=== PATIENT | female | born 1970 | race Caucasian/White ===

== ENCOUNTER → 2020-06-14 | Day surgery (SDC) | payer OTHER ==
[~2020-06-14] MED LIST: Acetaminophen 325 MG Tab PO ONE; Bupivacaine 0.25% 10 ML SDV ONE; EPINEPHrine 1 MG/ML 30 ML MDV IRR SCH; Lactated Ringers 1,000 ML IV SCH; Lactated Ringers 1,000 ML ONE; Lidocaine 1% 4 ML ONE; Lidocaine 1%/Sod Bicarbonate in NS 8.4% 1 ML Syringe IDERM PRN; Midazolam 1 MG/ML 2 ML SDV ONE; Pregabalin 25 MG Cap PO STA; Propofol 200 MG/20 ML SDV ONE; Sodium Chloride 0.9% 10 ML Syringe FLUSH PRN; ceFAZolin 1 GM Vial ONE; fentaNYL 100 MCG/2 ML SDV ONE; oxyCODONE 5 MG Tab PO PRN; oxyCODONE ER 10 MG TAB.ER PO STA
--- NOTE | 2020-06-14 07:30 | PCM.PREANE ---
Preanesthetic Assessment - Anesthesia/Transfusion/Family Hx Anesthesia History: Prior Anesthesia Without Reaction - Review of Systems General: No Symptoms Pulmonary: No Symptoms Cardiovascular: No Symptoms Gastrointestinal: No Symptoms Neurological: No Symptoms Other: Reports: None - Physical Assessment NPO Status Date: 06/13/20 NPO Status Time: 22:00 Vital Signs: 123/84 87 17 RR 98% 97.6F ASA Class: 1 Mental Status: Alert & Oriented x3 Airway Class: Mallampati = 1 Dentition: Reports: Normal Dentition, [place](s) Thyro-Mental Finger Breadths: 3 Mouth Opening Finger Breadths: 3 ROM/Head Extension: Full Lungs: Clear to Auscultation, Normal Respiratory Effort Cardiovascular: Regular Rate, Regular Rhythm - Lab Values: Laboratory Last Values MRSA (PCR) Negative 06/12/20 11:53 - Allergies Allergies/Adverse Reactions: Allergies Allergy/AdvReac Type Severity Reaction Status Date / Time ciprofloxacin [From Cipro] Allergy Hives Verified 06/13/20 11:42 promethazine AdvReac muscle Verified 06/13/20 14:51 spasms - Acknowledgements Anesthesia Type Planned: Spinal Pt an Appropriate Candidate for the Planned Anesthesia: Yes Alternatives and Risks of Anesthesia Discussed w Pt/Guardian: Yes Pt/Guardian Understands and Agrees with Anesthesia Plan: Yes PreAnesthesia Questionnaire HEENT History: Reports: Allergic Rhinitis, Impaired Vision Cardiovascular History: Reports: Other (See Below) Other Cardiovascular History: SVT, palpitations Respiratory History: Reports: None Gastrointestinal History: Reports: Chronic Constipation Genitourinary History: Reports: None UMBRELLA MENDER History: Reports: Other (See Below) Other OB/BYN History: dense breast tissue, breast cyst Musculoskeletal History: Reports: Other (See Below) Other Musculoskeletal History: right hip pain Neurological History: Reports: Migraines Psychiatric History: Reports: None Endocrine/Metabolic History: Reports: None Hematologic History: Reports: None Immunologic History: Reports: None Oncologic (Cancer) History: Reports: None Dermatologic History: Reports: None - Infectious Disease History Infectious Disease History: Reports: None - Past Surgical History Head Surgeries/Procedures: Reports: None HEENT Surgical History: Reports: Myringotomy w Tube(s) Cardiovascular Surgical History: Reports: Cardiac Ablation Respiratory Surgical History: Reports: None GI Surgical History: Reports: Hernia Repair/Other, Other (See Below) Other GI Surgeries/Procedures: umbilical hernia repair Female Surgical History: Reports: Hysterectomy Male Surgical History: Reports: None Endocrine Surgical History: Reports: None Neurological Surgical History: Reports: None Musculoskeletal Surgical History: Reports: None Oncologic Surgical History: Reports: None Dermatological Surgical History: Reports: None - SUBSTANCE USE Tobacco Use Status *Q: Never Tobacco User Recreational Drug Use History: No - HOME MEDS Home Medications: Home Meds Calcium Carb/Vitamin D3/Vit K1 [Calcium + D Soft Chewable Tab] 1 tab PO DAILY 06/13/20 [History] Cetirizine HCl [Zyrtec] 10 mg PO DAILY PRN 06/13/20 [History] Collagen, Hydrolysate (Bovine) [Collagen Hydrolysate] 1 dose PO DAILY 06/13/20 [History] SUMAtriptan succinate [Imitrex] 100 mg PO ASDIRECTED PRN 06/13/20 [History] polyethylene glycoL 3350 [MiraLAX] 1 dose PO DAILY PRN 06/13/20 [History] Aspirin [Aspirin EC] 325 mg PO BID #84 tab 06/14/20 [Rx] Cyclobenzaprine [Flexeril] 10 mg PO BID PRN #20 tab 06/14/20 [Rx] oxyCODONE 5 - 10 mg PO Q6H PRN #30 tab 06/14/20 [Rx]
--- NOTE | 2020-06-14 10:04 | PCM.POSTAN ---
POST ANESTHESIA ASSESSMENT - MENTAL STATUS Mental Status: Alert, Oriented - VITAL SIGNS Vital Signs: Last Vital Signs Temp 97.5 F 06/14/20 07:00 Pulse 87 06/14/20 07:00 Resp 12 06/14/20 09:58 BP 92/62 06/14/20 09:58 Pulse Ox 96 06/14/20 09:58 - RESPIRATORY Respiratory Status: Respiratory Rate WNL, Airway Patent, O2 Saturation Stable - CARDIOVASCULAR CV Status: Pulse Rate WNL, Blood Pressure Stable - GASTROINTESTINAL GI Status: No Symptoms - PAIN Pain Score: 0 (post SAB) - POST OP HYDRATION Hydration Status: Adequate & Stable
--- NOTE | 2020-06-14 11:03 | PCM.OPNOTE ---
- General Post-Op/Procedure Note Date of Surgery/Procedure: 06/14/20 Operative Procedure(s): right hip diagnostic video arthroscopy Pre Op Diagnosis: right hip labral tear with pincer and cam lesion Post-Op Diagnosis: same with central osteoarthrosis Anesthesia Technique: Local, MAC, Spinal Primary Surgeon: Todd Sarmiento Anesthesia Provider: Lj Kennedy Size Roller Operator: Claudia Billy EBL in mLs: 5 Complications: None Condition: Good Free Text/Narrative:: Intake & Output 06/13/20 06/14/20 06/14/20 22:59 06:59 14:59 Intake Total 800 Balance 800
--- NOTE | 2020-06-14 12:19 | CR ---
Right hip: 2 views the right hip were obtained obtained utilizing C-arm device. Study obtained during arthroscopy. Study shows widening of the right hip joint. Arthroscopy devices are in place. No additional abnormality is seen. Fluoroscopy time given as 72.3 seconds. Impression: 1. Procedural study as noted above. Diagnostic code #2
--- NOTE | 2020-06-14 13:37 | PCM48HPAN ---
Post Anesthesia Note - EVALUATION WITHIN 48HRS OF ANESTHETIC Vital Signs in Normal Range: Yes Patient Participated in Evaluation: Yes Respiratory Function Stable: Yes Airway Patent: Yes Cardiovascular Function Stable: Yes Hydration Status Stable: Yes Pain Control Satisfactory: Yes Nausea and Vomiting Control Satisfactory: Yes Mental Status Recovered: Yes Vital Signs: Last Vital Signs Temp 97.0 F 06/14/20 10:40 Pulse 61 06/14/20 12:00 Resp 16 06/14/20 12:00 BP 99/58 L 06/14/20 12:00 Pulse Ox 98 06/14/20 12:00 - COMMENTS/OBSERVATIONS Free Text/Narrative:: Ready for discharge home
--- NOTE | 2020-06-26 15:22 | OR ---
DATE OF OPERATION: 06/14/2020 SURGEON: Todd Sarmiento MD OPERATION PERFORMED: Right hip diagnostic video arthroscopy. PREOPERATIVE DIAGNOSIS: Right hip labral tear with pincer and CAM lesion. POSTOPERATIVE DIAGNOSIS: Right hip labral tear with pincer and CAM lesion with central hip osteoarthrosis. ANESTHESIA: Local MAC with spinal. ANESTHESIA PROVIDER: Sarai Martinez. YOUTH COUNSELOR: Claudia Billy PA-C. ESTIMATED BLOOD LOSS: Less than 5 mL. COMPLICATIONS: None. CONDITION: Stable. DESCRIPTION OF PROCEDURE: The patient was identified in the preoperative holding area. Proper site was marked and identified by the surgeon. The patient was taken back to the operative theater, where after adequate anesthesia, the patient was placed on the traction table. Left lower extremity was placed in a traction boot and was placed in dependent position. Right lower extremity was placed in a traction boot and gross traction was applied. Right hip was then sterilely prepped and draped in the usual sterile fashion. OR time was performed. Patient received 2 g IV Ancef. At this time, C-arm fluoroscopy was brought in, and 5 turns of traction was applied. The patient was noted to have a joint that would not distend secondary to the air, so I was able to place a spinal needle and then the joint space opened up. An incision was made in the skin. A dilator was placed and then the lateral portal was placed. Next, with the use of a spinal needle, the anterior lateral accessory portal was placed with direct visualization with a spinal needle. Incision was then again made. Dilator was done. An anterior portal was placed. The patient then had a partial capsulotomy performed, just a little portion of the anterior hip. At this point, I was able to review the labrum. It showed a minor amount of fraying but no gross tear was noted. 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 At this point, secondary to the severe central wear and no signs of severe labral tear and the most of the erythema being at the central wear portion, I did just remove all the scope and flushed excess saline through the joint. Traction was discontinued. Nylon suture was used for closure of the skin. Patient was placed in a sterile soft dressing, was sent to the PACU in stable condition. I did discuss with her and her afterwards that the next step would be total hip arthroplasty. KLEBER /[id number]
== END | disposition home or self-care (01) ==
LOC: JD.SDS 06:57
PROVIDERS: ATTEND Orthopaedic Surgery
DX: S73.191A Other sprain of right hip, initial encounter (principal); M16.11 Unilateral primary osteoarthritis, right hip; M25.851 Other specified joint disorders, right hip; M94.251 Chondromalacia, right hip; G89.29 Other chronic pain; J30.2 Other seasonal allergic rhinitis; I47.1 Supraventricular tachycardia; G43.009 Migraine without aura, not intractable, without status migrainosus; Z79.899 Other long term (current) drug therapy; Z88.8 Allergy status to other drugs, medicaments and biological substances; Z98.890 Other specified postprocedural states; X58.XXXA Exposure to other specified factors, initial encounter
CPT/HCPCS: 29914; 29915; 76000; 87641; A9270; J0690; J2250; J2704; J3010; J3490; J7120; 01202